=== PATIENT | male | born 2000 | race Caucasian/White ===

== ENCOUNTER → 2022-09-11 | Outpatient (CLI) | payer BC, OTHER ==
--- NOTE | 2022-09-11 09:00 | US ---
EXAMINATION TYPE: US abdomen complete DATE OF EXAM: 09/11/2022 COMPARISON: NONE CLINICAL HISTORY: R10.11. RUQ pain TECHNIQUE: Multiple sonographic images of the abdomen are obtained. FINDINGS: EXAM MEASUREMENTS: Liver Length: 15.6 cm Gallbladder Wall: 0.1 cm CBD: 0.3 cm Spleen: 11.4 cm Right Kidney: 10.3 x 3.7 x 2.9 cm Left Kidney: 11.7 x 4.1 x 4.3 cm Pancreas: wnl Liver: wnl Gallbladder: multiple dependant stones with shadowing that were mobile Evidence for sonographic Armstrong's sign: no CBD: wnl Spleen: wnl Right Kidney: wnl Left Kidney: wnl Upper IVC: wnl Abd Aorta: wnl IMPRESSION: 1. Cholelithiasis.
== END | disposition home or self-care (01) ==
LOC: RADUSWWP 08:10
PROVIDERS: ATTEND Family Medicine
DX: K80.20 Calculus of gallbladder without cholecystitis without obstruction (principal)
CPT/HCPCS: 76700

== ENCOUNTER 2023-04-30 21:29 | Emergency (ER) | payer OTHER ==
--- NOTE | 2023-04-30 22:04 | ED ---
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 He states that at work he got cheesemaker helper in his eye. He states he is unsure how much got in his eye. He attempted to rinse it out. He reports that it continues to burn. (Bella Rodriguez) This is a 22-year-old male who presents to the emergency department for right eye pain. States that he got cheesemaker helper in his right eye at work today. Unsure how much he got into the eye. This was room temperature. He did try to rinse his eye for approximately 10 minutes. Symptoms have improved, but are still present. Denies any difficulty with his vision. He does not wear contacts. (Sabra Jeffery) - Related Data Allergies Allergy/AdvReac Type Severity Reaction Status Date / Time No Known Allergies Allergy Verified 04/30/23 22:26 Review of Systems ROS Other: All systems not noted in ROS Statement are negative. <Bella Rodriguez - Last Filed: 04/30/23 22:03> ROS Other: All systems not noted in ROS Statement are negative. <Sabra Jeffery - Last Filed: 05/01/23 05:33> ROS Statement: Those systems with pertinent positive or pertinent negative responses have been documented in the HPI. General Exam <Bella Rodriguez - Last Filed: 04/30/23 22:03> Limitations: no limitations General appearance: alert, in no apparent distress Head exam: Present: atraumatic, normocephalic, normal inspection Respiratory exam: Present: normal lung sounds bilaterally. Absent: respiratory distress, wheezes, rales, rhonchi, stridor Cardiovascular Exam: Present: regular rate, normal rhythm, normal heart sounds. Absent: systolic murmur, diastolic murmur, rubs, gallop, clicks Neurological exam: Present: alert, oriented X3, CN II-XII intact Psychiatric exam: Present: normal affect, normal mood Skin exam: Present: warm, dry, intact, normal color. Absent: rash <Sabra Jeffery - Last Filed: 05/01/23 05:33> - General Exam Comments Initial Comments: Visual Physical Exam Vital signs reviewed General: Well-appearing, nontoxic, no acute distress. Head: Normocephalic, atraumatic Eyes: PERRLA, EOMI ENT: Airway patent Chest: Nonlabored breathing Skin: No visual rash, normal skin tone Neuro: Alert and oriented 3 Musculoskeletal: No gross abnormalities (Bella Rodriguez) Course Vital Signs 04/30/23 04/30/23 22:04 23:45 Temperature 98.0 F 98.0 F Pulse Rate 69 68 Respiratory 18 18 Rate Blood Pressure 115/76 119/75 O2 Sat by Pulse 98 99 Oximetry Medical Decision Making <Bella Rodriguez - Last Filed: 04/30/23 22:03> <Sabra Jeffery - Last Filed: 05/01/23 05:33> - Medical Decision Making Quick note preformed by Bella Rodriguez PA-C (Bella Rodriguez) This is a 22-year-old male who presents to the emergency department for right eye pain. Was pt. sent in by a medical professional or institution? @ -No Did you speak to anyone other than the patient for history? @ -No Did you review nursing and triage notes? @ -Yes, and I agree, it is accurate with regards to the patient's symptoms. Were old charts reviewed? @ -No Differential Diagnosis? @ -Differential Eye Pain: Conjuncitivitis (viral, bacterial, allergic), corneal abrasion, foreign body, iritis, uveitis, keratitis, acute angle closure glaucoma, this is not meant to be an all-inclusive list. EKG interpreted by me (3pts min.)? @ -Not obtained X-rays interpreted by me (1pt min.)? @ -Not obtained CT interpreted by me (1pt min.)? @ -Not obtained U/S interpreted by me (1pt. min.)? @ -Not obtained What testing was considered but not performed? (CT, X-rays, U/S, labs)? Why? @ -None What meds were considered but not given? Why? @ -None Did you discuss the management of the patient with other professionals? @ -No Did you reconcile home meds? @ -No Was smoking cessation discussed for >3mins.? @ -No Was critical care preformed (if so, how long)? @ -No Were there social determinants of health that impacted care today? How? (Homelessness, low income, unemployed, alcoholism, drug addiction, transportation, low edu. Level, literacy, decrease access to med. care, fdc, rehab)? @ -No Was there de-escalation of care discussed even if they declined? (Discuss DNR or withdrawal of care, Hospice)? @ -No What co-morbidities impacted this encounter? (DM, HTN, Smoking, COPD, CAD, Cancer, CVA, Hep., AIDS, mental health diagnosis, sleep apnea, morbid obesity)? @ -None Was patient admitted / discharged? @ -Discharged. Fluorescein staining performed revealing no evidence of a corneal abrasion. His eye was irrigated with a Edin lens. Visual acuity is 20/25 in each eye, and 20/20 together. Patient given a bottle of sulfacetamide eyedrops in the emergency department with dosing instructions reviewed. He was otherwise discharged home in stable condition. Undiagnosed new problem with uncertain prognosis? @ -None Drug Therapy requiring intensive monitoring for toxicity (Heparin, Nitro, Insulin, Cardizem)? @ -None Were any procedures done? @ -None Diagnosis/symptom? @ -Chemical burn of eye Acute, or Chronic, or Acute on Chronic? @ -Acute Uncomplicated (without systemic symptoms) or Complicated (systemic symptoms)? @ -Uncomplicated Side effects of treatment? @ -None Exacerbation, Progression, or Severe Exacerbation] @ -Not applicable Poses a threat to life or bodily function? @ -No Return precautions reviewed in depth, the patient is instructed to return to the emergency department with any new, worsening, or concerning symptoms. Patient verbalized understanding. This case was discussed in detail with the attending ED physician, Dr. Wooten. Presentation, findings, and treatment plan discussed in detail as well. (Sabra Jeffery) Disposition <Bella Rodriguez - Last Filed: 04/30/23 22:03> Is patient prescribed a controlled substance at d/c from ED?: No <Sabra Jeffery - Last Filed: 05/01/23 05:33> Clinical Impression: Chemical burn of eye Disposition: HOME SELF-CARE Instructions (If sedation given, give patient instructions): Chemical Eye Bui (ED) Additional Instructions: Return to the emergency department with any new, worsening, or concerning symptoms. Apply 2 drops of the sulfacetamide eyedrops provided into the right eye every 4 hours while awake for 5 days. You can also alternate with [id number] ibuprofen and Tylenol. Follow up with your primary care provider in 1-2 days. Referrals: Frank Villalba MD [Primary Care Provider] - 1-2 days
[2023-04-30] MEDS ORDERED: FLUORESCEIN STRIPS 1 MG STRIP BOTH EYES ONE (22:11)
[2023-04-30] MEDS ORDERED: PROPARACAINE 0.5% OPHTH DROPS 15 ML BTL BOTH EYES STA (22:11)
[2023-04-30 22:43] VITALS: RESP 18; TEMP 98
[2023-04-30] MEDS ORDERED: KETOROLAC 0.5% OPHTH DROPS 5 ML BTL RIGHT EYE ONE (23:01)
[2023-04-30] MEDS ORDERED: SULFACETAMIDE SOD 10% OPHTH DROPS 15 ML BTL RIGHT EYE ONE (23:01)
[2023-05-01 00:10] VITALS: BP 119/75; PULSE 68
== END 2023-04-30 23:47 | disposition home or self-care (01) ==
LOC: EC 21:29
DX: T65.891A Toxic effect of other specified substances, accidental (unintentional), initial encounter (principal); T26.91XA Corrosion of right eye and adnexa, part unspecified, initial encounter; Y99.0 Civilian activity done for income or pay
CPT/HCPCS: 99283